=== PATIENT | male | born 1965 | race Caucasian/White ===

== ENCOUNTER 2020-08-11 01:50 | Inpatient (IN) | payer OTHER, SELFPAY ==
[~2020-08-11] VITALS: Ht 180.3 cm; Wt 77.1 kg
[2020-08-11 01:54] VITALS: BP 147/100
--- NOTE | 2020-08-11 01:54 | NUR ---
PT AD FIGUEROA. TAKEN TO BED 13
[2020-08-11] MEDS ORDERED: NACL 0.9% 1,000 ML IV ONE (02:10)
[2020-08-11] MEDS ORDERED: KETOROLAC 15 MG/ML VIAL IVP ONE ×2 (02:10→02:20)
[2020-08-11] MEDS ORDERED: ONDANSETRON 4 MG/2 ML VIAL IVP ONE ×2 (02:10→07:05)
[2020-08-11] MEDS ORDERED: FAMOTIDINE 20 MG/2 ML VIAL IVP ONE (02:10)
--- NOTE | 2020-08-11 02:20 | NUR ---
states unable to take urinate.
--- NOTE | 2020-08-11 02:36 | NUR ---
PT TAKEN TO CT
--- NOTE | 2020-08-11 02:43 | NUR ---
PT RETURN FROM CT
[2020-08-11 03:27] LABS: ANION GAP 14.9 (8-16); CARBON DIOXIDE 29.8 mmol/L (21-32); CREATININE 0.8 mg/dL (0.6-1.3); POTASSIUM 3.7 mmol/L (3.5-5.1)
[2020-08-11 03:28] LABS: ALBUMIN 2.9 g/dL (3.4-5.0); TOTAL BILIRUBIN 0.4 mg/dL (0.0-1.0)
[2020-08-11] MEDS ORDERED: NACL 0.9% 2,000 ML IV SCH (03:35)
[2020-08-11] MEDS ORDERED: PIPERACILLIN/TAZOBACTAM 3.375 GM in DEXTROSE 5% 50 ML IV ONE ×2 (03:35→03:55)
[2020-08-11] MEDS ORDERED: MORPHINE SULFATE 4 MG/ML SYR IVP ONE ×3 (03:35→07:05)
[2020-08-11] MEDS ORDERED: PIPERACILLIN/TAZOBACTAM 3.375 GM VIAL IV ONE ×3 (03:54→20:51)
[2020-08-11] MEDS ORDERED: MORPHINE SULFATE 4 MG/ML SYR ONE ×2 (03:54→07:03)
[2020-08-11] MEDS ORDERED: NACL 0.9% 2,000 ML IV ONE (03:55)
--- NOTE | 2020-08-11 04:00 | NUR ---
Arina swab collected.
[2020-08-11 04:07] LABS: APPEARANCE,URINE CLEAR (CLEAR); BILIRUBIN,URINE 1+ (NEGATIVE); BLOOD, URINE 3+ (NEGATIVE); COLOR,URINE RED (YELLOW); LEUKOCYTE ESTERASE ,URINE NEGATIVE (NEGATIVE); NITRITE, URINE NEGATIVE (NEGATIVE); UGLUCOSE NEGATIVE (NEGATIVE)
--- NOTE | 2020-08-11 04:25 | NUR ---
blood cultures collected prior to abx therapy.
[2020-08-11 04:55] LABS: BASOPHILS % (AUTO) 0.3 % (0.0-2.0); EOSINOPHILS # (AUTO) 0.2 K/uL (0-0.4); EOSINOPHILS % (AUTO) 1.9 % (0.0-4.0); HEMATOCRIT 48.8 % (36-52); HEMOGLOBIN 16.8 g/dL (12.0-18.0); LYMPHOCYTES % (AUTO) 15.6 % (20.5-51.1); MEAN CORPUSCULAR HEMOGLOBIN 32 pg (27-31); MEAN CORPUSCULAR HGB CONC 35 g/dL (33-37); MEAN CORPUSCULAR VOLUME 93.2 fL (80-94); MONOCYTES # (AUTO) 1.6 K/uL (0.8-1.0); MONOCYTES % (AUTO) 12.9 % (1.7-9.3); NEUTROPHILS # (AUTO) 8.7 K/uL (1.8-7.7); NEUTROPHILS % (AUTO) 69.3 % (42.2-75.2); PLATELET COUNT (AUTO) 337 K/uL (140-450); RED BLOOD CELL COUNT(AUTO) 5.24 MIL/uL (4.20-6.10); RED CELL DISTRIBUTION WIDTH 17.4 % (11.6-13.7); WHITE BLOOD COUNT (AUTO) 12.5 K/uL (4.8-10.8)
[2020-08-11 05:56] LABS: RBC,URINE 50-80 /HPF (0-5)
[2020-08-11 05:57] LABS: WBC,URINE 0-5 /HPF (0-5)
--- NOTE | 2020-08-11 06:29 | NUR ---
PATIENT WAS PROVIDED WATER PER PATIENT REQUEST. NON-SKID SOCKS APPLIED TO PATIENT FEET. PATIENT WAS ASSISTED TO RESTROOM AND WAS ASSISTED BACK TO BED AFTER RESTROOM USE. PATIENT IS PLACED IN SEMI-FOWLERS WITH BED LOCKED IN LOWEST POSITION WITH 2 SIDE RAILS UP.
--- NOTE | 2020-08-11 07:00 | NUR ---
Pt c/o of 10/10 abd pain , observed dry heaving. Dr. Lambert made aware of pt status.
[2020-08-11] MEDS ORDERED: ONDANSETRON 4 MG/2 ML VIAL ONE (07:03)
[2020-08-11 08:35] LABS: BARBITURATE, URINE NEGATIVE ng/ml (NEG <=200); BENZODIAZEPINE, URINE NEGATIVE ng/mL (NEG <=200); CANNABINOID, URINE NEGATIVE ng/mL (NEG <=50); COCAINE, URINE NEGATIVE ng/mL (NEG <=300); OPIATE, URINE NEGATIVE ng/mL (NEG <=2000); PHENCYCLIDINE SCREEN,URINE NEGATIVE ng/mL (NEG <=25)
[2020-08-11] MEDS ORDERED: HYDROcodone/APAP 7.5/325 MG 1 TAB PO PRN (08:50)
[2020-08-11] MEDS ORDERED: DOCUSATE SODIUM 100 MG GELCAP PO PRN (08:50)
[2020-08-11] MEDS ORDERED: ACETAMINOPHEN 325 MG TAB PO PRN (08:50)
[2020-08-11] MEDS ORDERED: POTASSIUM CHLORIDE 10 MEQ TABER PO PRN (08:50)
[2020-08-11] MEDS ORDERED: ONDANSETRON 4 MG/2 ML VIAL IM/IVP PRN (08:50)
--- NOTE | 2020-08-11 10:19 | NUR ---
SOCIAL WORK NOTE: JONATHAN WAS UNABLE TO MEET PATIENT AT BEDSIDE. JONATHAN LEFT VM WITH PATIENT'S BROTHER JOE CURTIS [phone] TO COMPLETE ASSESSMENT. Addendum: 08/11/20 at 1059 by Boubacar Charles SS Patient's Orientation Unable To Assess Information Provided By JOE PARTIDA Comments JONATHAN WAS UNABLE TO MEET PATIENT AT BEDSIDE. JONATHAN COMPLETED ASSESSMENT WITH PATIENT'S BROTHER. Architect Marine, Realtionship and Phone Number JOE PARTIDA [phone] [facility] Power of Orthopedic Designer No Does Patient Have a POLST No Identifying Problems No Social Work Triggers Is A Social Work Consult Needed No Mandate Report Filed No Explanation Of Identifying Problems PATIENT IS A 54-YEAR-OLD MALE ADMITTED FOR COLITIS. PATIENT HAS PMHX OF DVT. Admitted From Home Pre-Admission Level Of Functioning Status Independent/Ambulatory Prior Resources/Services Used In Last 12 Months No Prior Resources Used Prior DME No Prior DME Used Dialysis Comments N/A Living Situation Lives With Family House Patient Had Caregiver No Home Support No Caregiver Issues Financial Issues No Known Financial Issue Referral To The Financial Counselor Needed No Factors/Needs No D/C Needs Identified Pt/Rep Participated In Discharge Plan Yes Patient/Family Agress With Discharge Plan Yes Discharge Plan Comments TENTATIVE DISCHARGE PLAN IS FOR PATIENT TO RETURN HOME. DC Plan Status Initiated
[2020-08-11] MEDS: NACL 0.9% 1,000 ML IV SCH (10:51)
[2020-08-11 11:03] LABS: CHOL/HDL RATIO 2.2 (1-4.5); FREE T4 (FREE THYROXINE) 0.88 ng/dL (0.76-1.46); THYROID STIMULATING HORMONE 2.87 uIU/mL (0.34-3.74)
[2020-08-11] MEDS ORDERED: HYOSCYAMINE 0.125 MG TAB PO PRN (13:05)
[2020-08-11] MEDS: PIPERACILLIN/TAZOBACTAM 3.375 GM in DEXTROSE 5% 50 ML IV SCH ×2 (15:53→21:00)
--- NOTE | 2020-08-11 19:30 | NUR ---
Report received from ELIO Arcos for continuation of care.
--- NOTE | 2020-08-11 20:10 | NUR ---
Pt c/o of abd pain - will provide PRN for mild pain at this time.
[2020-08-11] MEDS: LACTULOSE 20 GM/30 ML UDC PO SCH (21:00)
--- NOTE | 2020-08-11 22:30 | NUR ---
Pt ambulated to restroom w/ steady gait.
--- NOTE | 2020-08-12 00:10 | NUR ---
Pt ambulated to restroom w/ steady gait.
[2020-08-12 00:19] VITALS: BP 131/71
[2020-08-12] MEDS: NACL 0.9% 1,000 ML IV SCH (04:24)
[2020-08-12] MEDS ORDERED: PIPERACILLIN/TAZOBACTAM 3.375 GM VIAL IV ONE (04:55)
[2020-08-12] MEDS: PIPERACILLIN/TAZOBACTAM 3.375 GM in DEXTROSE 5% 50 ML IV SCH (05:08)
--- NOTE | 2020-08-12 07:45 | NUR ---
Patient resting in bed positioned for comfort, all needs met at this time. VSS
--- NOTE | 2020-08-12 09:09 | NUR ---
PATIENT HAS BEEN SCREENED AND CATEGORIZED MODERATE NUTRITION RISK. PATIENT WILL BE SEEN WITHIN 3-5 DAYS OF ADMISSION. 08/13/20 08/15/[address]
[2020-08-12 10:06] LABS: BASOPHILS % (AUTO) 0.5 % (0.0-2.0); EOSINOPHILS # (AUTO) 0.1 K/uL (0-0.4); EOSINOPHILS % (AUTO) 1.2 % (0.0-4.0); HEMATOCRIT 44.7 % (36-52); HEMOGLOBIN 15.1 g/dL (12.0-18.0); LYMPHOCYTES # (AUTO) 0.9 K/uL (2.0-11.5); LYMPHOCYTES % (AUTO) 12.2 % (20.5-51.1); MEAN CORPUSCULAR HEMOGLOBIN 32 pg (27-31); MEAN CORPUSCULAR HGB CONC 34 g/dL (33-37); MEAN CORPUSCULAR VOLUME 95.2 fL (80-94); MONOCYTES # (AUTO) 0.7 K/uL (0.8-1.0); MONOCYTES % (AUTO) 8.9 % (1.7-9.3); NEUTROPHILS % (AUTO) 77.2 % (42.2-75.2); PLATELET COUNT (AUTO) 226 K/uL (140-450); RED CELL DISTRIBUTION WIDTH 17.7 % (11.6-13.7)
[2020-08-12] MEDS: LACTULOSE 20 GM/30 ML UDC PO SCH (10:07)
[2020-08-12 10:34] LABS: CARBON DIOXIDE 29.3 mmol/L (21-32); CREATININE 0.9 mg/dL (0.6-1.3); POTASSIUM 3.3 mmol/L (3.5-5.1)
--- NOTE | 2020-08-12 11:01 | NUR ---
Resting with eyes closed, visible rise and fall of the chest. No complaints of pain at this time, vss
--- NOTE | 2020-08-12 11:20 | NUR ---
RESTING IN BED WIT EYES OPEN. RESPIRATIONS ARE REGULAR AND UNLABORED. DENIES PAIN OR DISCOMFORT. "i JUST WOKE UP, I WANT TO GO HOME".
[2020-08-12 11:26] LABS: T4 (THYROXINE) 4.4 ug/dL (4.5 - 12.0)
[2020-08-12] MEDS ORDERED: MAGNESIUM CITRATE 300 ML BTL PO SCH (13:00)
--- NOTE | 2020-08-12 14:00 | NUR ---
IS REQUESTING TO LEAVE AMA
--- NOTE | 2020-08-12 14:10 | NUR ---
IV D/C'D CATHETER INTACT. NAME BAND REMOVED. PT SIGNED AMA, AMBULATORY WITH STEADY GAIT
--- NOTE | 2020-08-12 14:11 | NUR ---
Patient does not wish to proceed with medical care recommended by Dr Lambert. Patient given information related to possible complications, up to and including , which could occur as a result of leaving hospital at this time. Patient verbalizes understanding of risks involved leaving against medical advice. Patient has signed AMA form.
[2020-08-12 22:11] LABS: WHITE BLOOD COUNT (AUTO) 7.8 K/uL (4.8-10.8)
== END 2020-08-12 14:11 | disposition left against medical advice (07) | DRG 720 ==
LOC: MED 01:50 → MMU 05:13
PROVIDERS: ADMIT Emergency Medicine; ATTEND Emergency Medicine
DX: A41.9 Sepsis, unspecified organism (principal); K52.9 Noninfective gastroenteritis and colitis, unspecified; K59.00 Constipation, unspecified; Z86.718 Personal history of other venous thrombosis and embolism; F17.210 Nicotine dependence, cigarettes, uncomplicated; F19.10 Other psychoactive substance abuse, uncomplicated; Z76.5 Malingerer [conscious simulation]; E78.00 Pure hypercholesterolemia, unspecified; F10.239 Alcohol dependence with withdrawal, unspecified; F10.229 Alcohol dependence with intoxication, unspecified; Y90.9 Presence of alcohol in blood, level not specified; Z20.822 Contact with and (suspected) exposure to COVID-19
CPT/HCPCS: 36415; 80048; 80053; 80305; 81001; 83036; 83605; 83690; 84436; 84439; 84443; 84479; 85025; 87040; 87186; 96361; 96365; 96375; 99291; 99292; G0482; J1885; J2270; J2405; J2543; J3490; J7060